=== PATIENT | male | born 1960 | race Caucasian/White ===

== ENCOUNTER → 2019-03-26 | Outpatient (CLI) | payer BC | LOC: M.WC 12:28 | DX: L89.892 Pressure ulcer of other site, stage 2 (principal); L97.512 Non-pressure chronic ulcer of other part of right foot with fat layer exposed; L84 Corns and callosities; G60.8 Other hereditary and idiopathic neuropathies; E66.9 Obesity, unspecified; E78.5 Hyperlipidemia, unspecified; I25.10 Atherosclerotic heart disease of native coronary artery without angina pectoris; I25.2 Old myocardial infarction; K21.9 Gastro-esophageal reflux disease without esophagitis; M19.90 Unspecified osteoarthritis, unspecified site; Z95.5 Presence of coronary angioplasty implant and graft ==

== ENCOUNTER → 2019-04-02 | Outpatient (CLI) | payer BC | LOC: M.WC 05:10 | DX: L89.892 Pressure ulcer of other site, stage 2 (principal); L97.511 Non-pressure chronic ulcer of other part of right foot limited to breakdown of skin; G60.8 Other hereditary and idiopathic neuropathies; E66.9 Obesity, unspecified; E78.5 Hyperlipidemia, unspecified; I25.10 Atherosclerotic heart disease of native coronary artery without angina pectoris; I25.2 Old myocardial infarction; K21.9 Gastro-esophageal reflux disease without esophagitis; M19.90 Unspecified osteoarthritis, unspecified site ==

== ENCOUNTER → 2019-04-09 | Outpatient (CLI) | payer BC | LOC: M.WC 03:33 | DX: L89.892 Pressure ulcer of other site, stage 2 (principal); L97.511 Non-pressure chronic ulcer of other part of right foot limited to breakdown of skin; G60.8 Other hereditary and idiopathic neuropathies; E66.9 Obesity, unspecified; E78.5 Hyperlipidemia, unspecified; I25.10 Atherosclerotic heart disease of native coronary artery without angina pectoris; I25.2 Old myocardial infarction; K21.9 Gastro-esophageal reflux disease without esophagitis; M19.90 Unspecified osteoarthritis, unspecified site; Z95.5 Presence of coronary angioplasty implant and graft; Z79.82 Long term (current) use of aspirin ==

== ENCOUNTER → 2019-04-16 | Outpatient (CLI) | payer BC | LOC: M.WC 05:17 | DX: L97.512 Non-pressure chronic ulcer of other part of right foot with fat layer exposed (principal); L89.892 Pressure ulcer of other site, stage 2; L84 Corns and callosities; E66.9 Obesity, unspecified; E78.5 Hyperlipidemia, unspecified; G60.8 Other hereditary and idiopathic neuropathies; I25.10 Atherosclerotic heart disease of native coronary artery without angina pectoris; I25.2 Old myocardial infarction; K21.9 Gastro-esophageal reflux disease without esophagitis; M19.90 Unspecified osteoarthritis, unspecified site ==

== ENCOUNTER → 2019-04-23 | Outpatient (CLI) | payer BC | LOC: M.WC 03:16 | DX: L89.892 Pressure ulcer of other site, stage 2 (principal); L97.511 Non-pressure chronic ulcer of other part of right foot limited to breakdown of skin; G60.8 Other hereditary and idiopathic neuropathies; I25.10 Atherosclerotic heart disease of native coronary artery without angina pectoris; I25.2 Old myocardial infarction; K21.9 Gastro-esophageal reflux disease without esophagitis; M19.90 Unspecified osteoarthritis, unspecified site; E78.5 Hyperlipidemia, unspecified; E66.9 Obesity, unspecified; Z68.26 Body mass index [BMI] 26.0-26.9, adult; Z79.82 Long term (current) use of aspirin ==

== ENCOUNTER → 2019-05-07 | Outpatient (CLI) | payer BC | LOC: M.WC 03:53 | DX: L97.511 Non-pressure chronic ulcer of other part of right foot limited to breakdown of skin (principal); L89.892 Pressure ulcer of other site, stage 2; E66.9 Obesity, unspecified; E78.5 Hyperlipidemia, unspecified; G60.8 Other hereditary and idiopathic neuropathies; I25.10 Atherosclerotic heart disease of native coronary artery without angina pectoris; I25.2 Old myocardial infarction; K21.9 Gastro-esophageal reflux disease without esophagitis; M19.90 Unspecified osteoarthritis, unspecified site ==

== ENCOUNTER → 2019-05-21 | Outpatient (CLI) | payer BC | LOC: M.WC 04:36 | DX: L89.892 Pressure ulcer of other site, stage 2 (principal); L97.518 Non-pressure chronic ulcer of other part of right foot with other specified severity; E66.9 Obesity, unspecified; E78.5 Hyperlipidemia, unspecified; G60.8 Other hereditary and idiopathic neuropathies; I25.10 Atherosclerotic heart disease of native coronary artery without angina pectoris; I25.2 Old myocardial infarction; K21.9 Gastro-esophageal reflux disease without esophagitis; M19.90 Unspecified osteoarthritis, unspecified site ==